=== PATIENT | female | born 2000 | race African-American/Black ===

== ENCOUNTER 2021-04-09 20:51 | Emergency (ER) | payer OTHER ==
[2021-04-09 21:00] VITALS: BP 122/84
[2021-04-09] MEDS ORDERED: SULFAMETH/TRIMETH DS 800/160 MG TABLET PO STA (21:20)
[2021-04-09] MEDS ORDERED: cephALEXin 250 MG CAPSULE PO STA (21:20)
--- NOTE | 2021-04-09 21:21 | ED Physician Documentation ---
History of Present Illness - Stated complaint Stated Complaint: L LEG RASH - Chief complaint Chief Complaint: Wound - History obtained from History obtained from: Patient - History of Present Illness Timing: Yesterday Pain level max: 3 Pain level now: 3 - Additonal information Additional information: 20-year-old female presents to the emergency department after suffering a scratch from a dog on the left thigh about 3 days ago. Yesterday noticed redness and swelling to the site. Nothing makes it better or worse. No fevers. No chills. No drainage. Review of Systems Constitutional: denies: Fever, Chills : denies: Now [facility] PAST MEDICAL HISTORY - Past Medical History Past Medical History: No - Past Surgical History Past Surgical History: No - Present Medications Home Medications: Ambulatory Orders Medication Instructions Recorded Confirmed Sulfamethox/Trimeth 800/160 1 each PO BID #14 tablet 04/09/21 [Bactrim Ds 800/160] cephALEXin [Keflex] 500 mg PO Q6H #28 cap 04/09/21 - Allergies Allergies/Adverse Reactions: Allergies Allergy/AdvReac Type Severity Reaction Status Date / Time No Known Drug Allergies Allergy Verified 04/09/21 21:00 - Social History Does the pt smoke?: No Smoking Status: Never smoker Does the pt drink ETOH?: No Does the pt have substance abuse?: No - Immunizations Immunizations are current?: Yes PD ED PE NORMAL - Vitals Vital signs reviewed: Yes - General General: Alert and oriented X 3, No acute distress - Derm Derm: Warm and dry - Extremities Extremities: Other (2 x 2 centimeter of erythema to the left inner thigh. No drainage. No induration. No fluctuance. Neurovascularly intact) - Neuro Neuro: Alert and oriented X 3 Results - Vitals Vitals: Vital Signs - 24 hr 04/09/21 04/09/21 20:56 21:17 Temperature 36.4 C L 36.4 C L Heart Rate 78 78 Respiratory 12 13 Rate Blood Pressure 122/84 H 122/84 H O2 Saturation 100 100 Oxygen O2 Source Room air PD MEDICAL DECISION MAKING - ED course Complexity details: considered differential, d/w patient ED course: Patient with what appears to be cellulitis of the left thigh. Will place on Bactrim and Keflex. We will have her follow-up with her doctor for further care. Patient counseled regarding signs and symptoms for which I believe and urgent re-evaluation would be necessary. Patient with good understanding of and agreement to plan and is comfortable going home at this time This document was made in part using voice recognition software. While efforts are made to proofread this document, sound alike and grammatical errors may occur. Departure - Departure Disposition: 01 Home, Self Care Clinical Impression: Cellulitis Qualifiers: Site of cellulitis: extremity Site of cellulitis of extremity: lower extremity Laterality: left Qualified Code(s): L03.116 - Cellulitis of left lower limb Condition: Good Instructions: ED Infec Skin Cellulitis Follow-Up: EVA WISE MD [Primary Care Provider] - Within 1 week Prescriptions: Sulfamethox/Trimeth 800/160 [Bactrim Ds 800/160] 1 each PO BID #14 tablet cephALEXin [Keflex] 500 mg PO Q6H #28 cap Comments: Take all antibiotics until gone. Return if you worsen. Please follow-up with your doctor for wound recheck within 1 week. Discharge Date/Time: 04/09/21 21:31
== END 2021-04-09 21:31 | disposition home or self-care (01) ==
LOC: ED 20:51
DX: L03.116 Cellulitis of left lower limb (principal)
CPT/HCPCS: 99282; 99283; A9270

== ENCOUNTER 2021-05-10 15:29 | Emergency (ER) | payer OTHER ==
[2021-05-10] MEDS ORDERED: DICYCLOMINE 10 MG CAPSULE PO STA (17:06)
[2021-05-10] MEDS ORDERED: ONDANSETRON ODT 4 MG TABLET TL STA (17:06)
--- NOTE | 2021-05-10 17:06 | ED Physician Documentation ---
PD HPI ABD PAIN - Stated complaint Stated Complaint: FEMALE - Chief complaint Chief Complaint: Abd Pain - History obtained from History obtained from: Patient - Additional information Additional information: Previously healthy 21-year-old woman has had generalized abdominal cramping for the last week. It comes and goes. Some been better over the last few days but a little worse today. Associated with nausea especially after eating, but no vomiting. No changes in bowel movements. No vaginal discharge or bleeding. She is unsure of her LMP. Review of Systems Ten Systems: 10 systems reviewed and negative Constitutional: reports: Reviewed and negative Eyes: reports: Reviewed and negative Ears: reports: Reviewed and negative Nose: reports: Reviewed and negative PD PAST MEDICAL HISTORY - Past Surgical History Past Surgical History: No - Present Medications Home Medications: Ambulatory Orders Medication Instructions Recorded Confirmed No122/Iron/Folic Acid 1 each PO DAILY #90 tablet 05/10/21 [ Multi Tablet] - Allergies Allergies/Adverse Reactions: Allergies Allergy/AdvReac Type Severity Reaction Status Date / Time No Known Drug Allergies Allergy Verified 05/10/21 15:53 - Social History Does the pt smoke?: No Smoking Status: Never smoker Does the pt drink ETOH?: No Does the pt have substance abuse?: No - Immunizations Immunizations are current?: Yes PD ED PE NORMAL - Vitals Vital signs reviewed: Yes - General General: Alert and oriented X 3, No acute distress - Abdomen Abdomen: Normal bowel sounds, Soft, Non tender - Neuro Neuro: Alert and oriented X 3, Normal speech - Psych Psych: Normal mood, Normal affect Results - Vitals Vitals: Vital Signs - 24 hr 05/10/21 05/10/21 05/10/21 15:51 17:00 19:52 Temperature 36.4 C L 36 C L 37.2 C Heart Rate 81 84 83 Respiratory 16 16 16 Rate Blood Pressure 132/94 H 150/101 H 111/62 O2 Saturation 100 100 100 05/10/21 05/10/21 20:08 20:53 Temperature 37.2 C Heart Rate 77 89 Respiratory 16 16 Rate Blood Pressure 109/68 109/74 O2 Saturation 99 100 Oxygen O2 Source Room air - Labs Labs: Laboratory Tests 05/10/21 05/10/21 05/10/21 16:57 17:38 17:38 WBC 6.7 RBC 4.14 L Hgb 13.0 Hct 38.7 MCV 93.5 MCH 31.4 H MCHC 33.6 RDW 12.1 Plt Count 274 MPV 9.2 Neut # (Auto) 4.2 Lymph # (Auto) 1.8 [place] # (Auto) 0.6 Eos # (Auto) 0.0 Baso # (Auto) 0.0 Absolute Nucleated RBC 0.00 Nucleated RBC % 0.0 Sodium 138 Potassium 4.2 Chloride 104 Carbon Dioxide 23 Anion Gap 11.0 BUN 8 Creatinine 0.8 Estimated GFR (MDRD) 109 Glucose 87 Calcium 10.3 Total Bilirubin 0.9 AST 18 ALT 10 Alkaline Phosphatase 43 Total Protein 8.6 H Albumin 4.9 Globulin 3.7 Albumin/Globulin Ratio 1.3 Lipase 28 HCG, Quant Urine Color YELLOW Urine Clarity CLEAR Urine pH 7.0 Ur Specific [employer] 1.020 Urine Protein TRACE Urine Glucose (UA) NEGATIVE Urine Ketones TRACE Urine Occult Blood SMALL H Urine Nitrite NEGATIVE Urine Bilirubin NEGATIVE Urine Urobilinogen 1 (NORMAL) Ur Leukocyte Esterase NEGATIVE Urine RBC 0-5 Urine WBC 0-3 Ur Squamous Epith Cells FEW Squamous Urine Bacteria Rare Urine Mucus Moderate Strands Ur Microscopic Review INDICATED Urine Culture Comments NOT INDICATED Urine HCG, Qual POSITIVE Blood Type 05/10/21 05/10/21 17:38 17:38 WBC RBC Hgb Hct MCV MCH MCHC RDW Plt Count MPV Neut # (Auto) Lymph # (Auto) [place] # (Auto) Eos # (Auto) Baso # (Auto) Absolute Nucleated RBC Nucleated RBC % Sodium Potassium Chloride Carbon Dioxide Anion Gap BUN Creatinine Estimated GFR (MDRD) Glucose Calcium Total Bilirubin AST ALT Alkaline Phosphatase Total Protein Albumin Globulin Albumin/Globulin Ratio Lipase HCG, Quant 34783.00 Urine Color Urine Clarity Urine pH Ur Specific [employer] Urine Protein Urine Glucose (UA) Urine Ketones Urine Occult Blood Urine Nitrite Urine Bilirubin Urine Urobilinogen Ur Leukocyte Esterase Urine RBC Urine WBC Ur Squamous Epith Cells Urine Bacteria Urine Mucus Ur Microscopic Review Urine Culture Comments Urine HCG, Qual Blood Type O NEGATIVE PD MEDICAL DECISION MAKING - ED course ED course: 21-year-old woman on control presents with abdominal cramping. Fairly benign exam. She did not think she was , that said her urinary test suggested otherwise. She was neither happy nor sad about being , but of course the focus changed to evaluation of the site of . And of course ruling out ectopic. Blood type is O-, but she has not had any bleeding. Departure - Departure Disposition: 01 Home, Self Care Clinical Impression: Blood type O-, Pelvic pain, 6 weeks gestation of Condition: Good Record reviewed to determine appropriate education?: Yes Instructions: ED Preg Established Normal Sxs Follow-Up: [facility] [Provider Group] Prescriptions: No122/Iron/Folic Acid [ Multi Tablet] 1 each PO DAILY #90 tablet Comments: You can take Tylenol as needed for the cramping. I am also prescribing vitamins. Ultrasound shows you to be at about 6 weeks which would put her due date at approximately January 03 of next year. Return for new or worsening symptoms. Your blood type is O-, that means later in the you will need RhoGam. Also if you have bleeding please return for reevaluation as you will need RhoGam probably at that time. Discharge Date/Time: 05/10/21 20:58
[2021-05-10 17:09] LABS: BILIRUBIN,URINE NEGATIVE (NEGATIVE); GLUCOSE, URINE (UA) NEGATIVE (NEGATIVE); KETONES,URINE (UA) TRACE mg/dL (NEGATIVE); LEUKOCYTE ESTERASE, URINE NEGATIVE (NEGATIVE); NITRITE,URINE NEGATIVE (NEGATIVE); OCCULT BLOOD,URINE SMALL (NEGATIVE); PROTEIN,URINE TRACE mg/dL (NEGATIVE); UROBILINOGEN,URINE 1 (NORMAL) E.U./dL (NORMAL)
[2021-05-10 17:10] LABS: CLARITY,URINE CLEAR (CLEAR); HCG UR QUAL POSITIVE
[2021-05-10 17:13] LABS: BACTERIA,URINE Rare /HPF (None Seen); MUCUS,URINE Moderate Strands; RBC,URINE 0-5 /HPF (0-5); SQUAMOUS EPITHELIAL CELL,UR FEW Squamous (<= Few); WBC,URINE 0-3 /HPF (0-5)
[2021-05-10 17:45] LABS: BASOPHILS % (AUTO) 0.4 %; EOSINOPHILS % (AUTO) 0.4 %; HCT - HEMATOCRIT 38.7 % (37.0-47.0); LYMPHOCYTES # (AUTO) 1.8 10^3/uL (1.5-3.5); LYMPHOCYTES % (AUTO) 27.1 %; MEAN CORPUSCULAR HEMOGLOBIN 31.4 pg (27.0-31.0); MEAN CORPUSCULAR HGB CONC 33.6 g/dL (32.0-36.0); MEAN CORPUSCULAR VOLUME 93.5 fL (81.0-99.0); MEAN PLATELET VOLUME 9.2 fL (7.9-10.8); MONOCYTES # (AUTO) 0.6 10^3/uL (0.0-1.0); MONOCYTES % (AUTO) 9.4 %; NEUTROPHILS # (AUTO) 4.2 10^3/uL (1.5-6.6); NEUTROPHILS % (AUTO) 62.7 %; PLT - PLATELET COUNT 274 10^3/uL (130-450); RED BLOOD COUNT 4.14 10^6/uL (4.20-5.40); RED CELL DISTRIBUTION WIDTH 12.1 % (12.0-15.0); WHITE BLOOD COUNT 6.7 x10^3/uL (4.8-10.8)
[2021-05-10 18:01] LABS: ALBUMIN 4.9 g/dL (3.2-5.5); ALBUMIN/GLOBULIN RATIO 1.3 (1.0-2.2); BILIRUBIN,TOTAL 0.9 mg/dL (0.2-1.0); CALCIUM 10.3 mg/dL (8.5-10.3); CREATININE 0.8 mg/dL (0.4-1.0); POTASSIUM 4.2 mmol/L (3.5-5.0); TOTAL PROTEIN 8.6 g/dL (6.7-8.2)
[2021-05-10 20:54] VITALS: BP 109/74
--- NOTE | 2021-05-10 21:36 | Ultrasound Report ---
PROCEDURE: OB First Trimester INDICATIONS: pelvic pain with preg, unknown lmp OUTSIDE/PRIOR DATING DATA: Last menstrual period (LMP): Not available. LMP-based estimated date of delivery (RIOS): Not available. First dating scan (date and location): 05/10/2021 at [facility]. Estimated date of delivery (RIOS) from first dating scan: 01/03/2022. The below data below was generated using the ultrasound RIOS of 01/03/2022. TECHNIQUE: Real-time scanning was performed of the fetus and maternal pelvic organs, with image documentation. COMPARISON: Not available. FINDINGS: There is a single living IUP with the estimated gestational age 6 weeks 0 day. heart tone is present with heart rate 104 BPM. A yolk sac is present. There is a small periestationa l bleed measuring 1.3 x 0.8 x 0.9 cm. Measurement variability in dating: +/- 4 weeks by LMP, +/- 7 days by mean sac diameter (use before 6 weeks gestation if crown-rump length not able to be measured), +/- 5 days by crown-rump length (6-12 weeks gestation). Maternal organs: Ovaries are grossly normal. There is a corpus luteal cyst in the right ovary. There is a small amount of free fluid in pelvis near the uterine fundus. IMPRESSION: 1. There is an intrauterine with the estimated gestational age 6 weeks 0 day. The ultrasoun d RIOS is 01/03/2022. 2. Small perigestational bleed measures 1.3 x 0.8 x 0.9 cm. 3. A corpus luteal cyst in the right ovary. 4. A small amount of free fluid in pelvis, probably within physiological limits. Reviewed by: Edel Manjarrez MD on 05/10/2021 9:34 PM PDT Approved by: Edel Manjarrez MD on 05/10/2021 9:34 PM PDT Station ID: [id number]
--- NOTE | 2021-05-10 21:37 | Ultrasound Report ---
PROCEDURE: OB Transvaginal INDICATIONS: pelvic pain with preg, unknown lmp OUTSIDE/PRIOR DATING DATA: Last menstrual period (LMP): Not available. LMP-based estimated date of delivery (RIOS): Not available. First dating scan (date and location): 05/10/2021 at [facility]. Estimated date of delivery (RIOS) from first dating scan: 01/03/2022. The below data below was generated using the ultrasound RIOS of 01/03/2022. TECHNIQUE: Transvaginal scanning was performed of the fetus and maternal pelvic organs, with image documentation . COMPARISON: OB ultrasound, transabdominal scanning, 05/02/2021. FINDINGS: There is a single living IUP with the estimated gestational age 6 weeks 0 day. heart tone is present with heart rate 104 BPM. A yolk sac is present. There is a small periestationa l bleed measuring 1.3 x 0.8 x 0.9 cm. Measurement variability in dating: +/- 4 weeks by LMP, +/- 7 days by mean sac diameter (use before 6 weeks gestation if crown-rump length not able to be measured), +/- 5 days by crown-rump length (6-12 weeks gestation). Maternal organs: Ovaries are grossly normal. There is a corpus luteal cyst in the right ovary. There is a small amount of free fluid in pelvis near the uterine fundus. IMPRESSION: 1. There is an intrauterine with the estimated gestational age 6 weeks 0 day. The ultrasoun d RIOS is 01/03/2022. 2. Small perigestational bleed measures 1.3 x 0.8 x 0.9 cm. 3. A corpus luteal cyst in the right ovary. 4. A small amount of free fluid in pelvis, probably within physiological limits. Reviewed by: Edel Manjarrez MD on 05/10/2021 9:36 PM PDT Approved by: Edel Manjarrez MD on 05/10/2021 9:36 PM PDT Station ID: [id number]
== END 2021-05-10 20:58 | disposition home or self-care (01) ==
LOC: ED 15:29
DX: O26.891 Other specified pregnancy related conditions, first trimester (principal); R10.2 Pelvic and perineal pain; Z67.40 Type O blood, Rh positive; Z3A.01 Less than 8 weeks gestation of pregnancy
CPT/HCPCS: 36415; 76801; 76817; 80053; 81001; 81025; 83690; 84702; 85025; 86900; 86901; 99283; 99284; A9270; Q0162; 81003; 87086

== ENCOUNTER 2021-09-23 08:00 | Outpatient (CLI) | payer OTHER ==
[2021-09-23 22:22] LABS: BACTERIAL VAGINOSIS DNA POSITIVE (NEGATIVE); CANDIDA GLABRATA DNA NEGATIVE (NEGATIVE); CANDIDA GROUP DNA POSITIVE (NEGATIVE); CANDIDA KRUSEI DNA NEGATIVE (NEGATIVE); TRICHOMONAS VAGINALIS DNA NEGATIVE (NEGATIVE)
== END 2021-09-23 23:59 ==
LOC: LAB 08:00
PROVIDERS: ATTEND Nurse Practitioner
DX: N89.8 Other specified noninflammatory disorders of vagina (principal)
CPT/HCPCS: 87661; 87801

== ENCOUNTER 2021-11-20 08:00 | Outpatient (CLI) | payer OTHER | END 2021-11-20 23:59 | disposition home or self-care (01) | LOC: LAB.N 08:00 | PROVIDERS: ATTEND Family Medicine | DX: B00.1 Herpesviral vesicular dermatitis (principal) | CPT/HCPCS: 81599; 87140; 87255 ==

== ENCOUNTER 2023-07-04 13:04 | Emergency (ER) | payer OTHER ==
[2023-07-04 13:35] LABS: BASOPHILS % (AUTO) 0.5 %; EOSINOPHILS % (AUTO) 0.6 %; HCT - HEMATOCRIT 42.6 % (37.0-47.0); HGB - HEMOGLOBIN 13.7 g/dL (12.0-16.0); LYMPHOCYTES # (AUTO) 2.6 10^3/uL (1.5-3.5); LYMPHOCYTES % (AUTO) 40.7 %; MEAN CORPUSCULAR HEMOGLOBIN 29.5 pg (27.0-31.0); MEAN CORPUSCULAR HGB CONC 32.2 g/dL (32.0-36.0); MEAN CORPUSCULAR VOLUME 91.8 fL (81.0-99.0); MEAN PLATELET VOLUME 9.5 fL (7.9-10.8); MONOCYTES # (AUTO) 0.4 10^3/uL (0.0-1.0); MONOCYTES % (AUTO) 6.2 %; NEUTROPHILS # (AUTO) 3.3 10^3/uL (1.5-6.6); NEUTROPHILS % (AUTO) 51.8 %; PLT - PLATELET COUNT 317 10^3/uL (130-450); RED BLOOD COUNT 4.64 10^6/uL (4.20-5.40); RED CELL DISTRIBUTION WIDTH 12.2 % (12.0-15.0); WHITE BLOOD COUNT 6.3 x10^3/uL (4.8-10.8)
[2023-07-04 13:44] LABS: BILIRUBIN,URINE NEGATIVE (NEGATIVE); GLUCOSE, URINE (UA) NEGATIVE (NEGATIVE); KETONES,URINE (UA) NEGATIVE (NEGATIVE); LEUKOCYTE ESTERASE, URINE NEGATIVE (NEGATIVE); NITRITE,URINE NEGATIVE (NEGATIVE); OCCULT BLOOD,URINE NEGATIVE (NEGATIVE); PH,URINE 5.5 PH (5.0-7.5); PROTEIN,URINE NEGATIVE (NEGATIVE); UROBILINOGEN,URINE 0.2 (NORMAL) E.U./dL (NORMAL)
[2023-07-04 13:45] LABS: CLARITY,URINE CLEAR (CLEAR); HCG UR QUAL NEGATIVE
[2023-07-04 13:50] LABS: ALBUMIN 5.2 g/dL (3.2-5.5); ALBUMIN/GLOBULIN RATIO 1.5 (1.0-2.2); BILIRUBIN,TOTAL 0.4 mg/dL (0.2-1.0); CALCIUM 10.1 mg/dL (8.5-10.3); CREATININE 0.9 mg/dL (0.6-1.3); POTASSIUM 3.9 mmol/L (3.5-4.5); TOTAL PROTEIN 8.6 g/dL (6.4-8.9)
--- NOTE | 2023-07-04 14:40 | ED Physician Documentation ---
PD HPI ABD PAIN - Stated complaint Stated Complaint: ABD CRAMPS - Chief complaint Chief Complaint: Abd Pain - History obtained from History obtained from: Patient - Additional information Additional information: The patient comes to the emergency department chief complaint of lower abdominal cramping has been going on for the last couple of days. She states that it seems to be worse when she gets up and about that when she is sits or lies down rest, she does not feel it at all. She denies any change in bowel movements or any vaginal symptoms. No urinary symptoms. No fevers or chills. No nausea or vomiting. She is otherwise fairly healthy. She is not known to be . PD PAST MEDICAL HISTORY - Past Medical History Past Medical History: No Cardiovascular: None Respiratory: None Neuro: None Endocrine/Autoimmune: None GI: None VP PROJECT: None : None HEENT: None Psych: None Musculoskeletal: None Derm: None - Past Surgical History Past Surgical History: No - Present Medications Home Medications: Ambulatory Orders Medication Instructions Recorded Confirmed No Known Home Medications 07/04/23 07/04/23 - Allergies Allergies/Adverse Reactions: Allergies Allergy/AdvReac Type Severity Reaction Status Date / Time No Known Drug Allergies Allergy Verified 07/04/23 13:20 - Social History Does the pt smoke?: No Smoking Status: Never smoker Does the pt drink ETOH?: No Does the pt have substance abuse?: No - Immunizations Immunizations are current?: Yes Immunizations: Other immun not current PD ED PE NORMAL - Vitals Vital signs reviewed: Yes - General General: Alert and oriented X 3, No acute distress, Well developed/nourished - HEENT HEENT: Atraumatic, PERRL, EOMI, Moist mucous membranes - Neck Neck: Supple, no meningeal sign - Cardiac Cardiac: RRR, No murmur - Respiratory Respiratory: No respiratory distress, Clear bilaterally - Abdomen Abdomen: Soft, Non tender, Non distended - Derm Derm: Normal color, Warm and dry, No rash - Extremities Extremities: No deformity, No edema - Neuro Neuro: Alert and oriented X 3, Other (Grossly intact) - Psych Psych: Normal mood, Normal affect Results - Vitals Vitals: Oxygen O2 Source Room air - Labs Labs: Laboratory Tests 07/04/23 07/04/23 07/04/23 13:30 13:30 13:31 WBC 6.3 RBC 4.64 Hgb 13.7 Hct 42.6 MCV 91.8 MCH 29.5 MCHC 32.2 RDW 12.2 Plt Count 317 MPV 9.5 Neut # (Auto) 3.3 Lymph # (Auto) 2.6 [place] # (Auto) 0.4 Eos # (Auto) 0.0 Baso # (Auto) 0.0 Absolute Nucleated RBC 0.00 Nucleated RBC % 0.0 Sodium Potassium Chloride Carbon Dioxide Anion Gap BUN Creatinine Estimated GFR (MDRD) Glucose Calcium Total Bilirubin AST ALT Alkaline Phosphatase Total Protein Albumin Globulin Albumin/Globulin Ratio Lipase Urine Color YELLOW Urine Clarity CLEAR Urine pH 5.5 Ur Specific [place] >=1.030 H Urine Protein NEGATIVE Urine Glucose (UA) NEGATIVE Urine Ketones NEGATIVE Urine Occult Blood NEGATIVE Urine Nitrite NEGATIVE Urine Bilirubin NEGATIVE Urine Urobilinogen 0.2 (NORMAL) Ur Leukocyte Esterase NEGATIVE Ur Microscopic Review NOT INDICATED Urine Culture Comments NOT INDICATED Urine HCG, Qual NEGATIVE 07/04/23 13:31 WBC RBC Hgb Hct MCV MCH MCHC RDW Plt Count MPV Neut # (Auto) Lymph # (Auto) [place] # (Auto) Eos # (Auto) Baso # (Auto) Absolute Nucleated RBC Nucleated RBC % Sodium 136 Potassium 3.9 Chloride 102 Carbon Dioxide 26 Anion Gap 8.0 BUN 10 Creatinine 0.9 Estimated GFR (MDRD) 93 Glucose 90 Calcium 10.1 Total Bilirubin 0.4 AST 18 ALT 12 Alkaline Phosphatase 73 Total Protein 8.6 Albumin 5.2 Globulin 3.4 Albumin/Globulin Ratio 1.5 Lipase 25 Urine Color Urine Clarity Urine pH Ur Specific [place] Urine Protein Urine Glucose (UA) Urine Ketones Urine Occult Blood Urine Nitrite Urine Bilirubin Urine Urobilinogen Ur Leukocyte Esterase Ur Microscopic Review Urine Culture Comments Urine HCG, Qual PD Medical Decision Making - ED course Complexity details: reviewed results, re-evaluated patient, considered differential, d/w patient ED course: The patient was worked up with labs, urinalysis, and test, all of which were found to be unremarkable. Her abdominal exam is completely benign and I discussed with the patient that at this point in time, I do not feel there is an emergent indication for imaging. I am not sure exactly why the patient has intermittent cramping, but up there is no evidence of an emergent condition right now. We have discussed symptomatic management at home, as well as usual indications for return. We have also discussed the need for follow-up. Departure - Departure Disposition: 01 Home, Self Care Clinical Impression: Abdominal cramps Condition: Stable Instructions: ED Abdominal Pain Female Non-Specific Abdominal Pain Comments: Your labs are completely normal today. Your urinalysis shows no abnormalities other than being a bit concentrated, which could indicate some dehydration. Please be sure you are getting 8 to 10 cups of water each day to prevent dehydration. Your abdominal exam is benign and its not entirely clear what is causing the cramps when you get up and move around. Your test is negative and there is no evidence on exam or the testing to suggest appendicitis, urinary tract infection, kidney stone, or ovarian pathology. Additionally, your negative test rules out some of the other more emergent causes of low abdominal pain that we would consider. Most likely, the symptoms will blow over on their own, given time. Some of it could be related to stress, dehydration, diet, or the recent cessation of your control. Please be sure to follow-up with your doctor and ideally, a sawdust machine operator as well, to discuss other control options. If your symptoms get a lot worse, or you develop unremitting pain in a specific part of your abdomen, especially with fever and/or vomiting, please return to the emergency department for a recheck. Forms: PCP List Discharge Date/Time: 07/04/23 14:51
[2023-07-04 14:53] VITALS: BP 134/95; O2SAT 98
== END 2023-07-04 14:51 | disposition home or self-care (01) ==
LOC: ED 13:04
DX: R10.30 Lower abdominal pain, unspecified (principal)
CPT/HCPCS: 36415; 80053; 81001; 81003; 81025; 83690; 85025; 87086; 99283

== ENCOUNTER 2023-08-14 08:00 | Outpatient (CLI) | payer OTHER ==
[2023-08-14 22:18] LABS: BACTERIAL VAGINOSIS DNA POSITIVE (NEGATIVE); CANDIDA GLABRATA DNA NEGATIVE (NEGATIVE); CANDIDA GROUP DNA NEGATIVE (NEGATIVE); CANDIDA KRUSEI DNA NEGATIVE (NEGATIVE); TRICHOMONAS VAGINALIS DNA NEGATIVE (NEGATIVE)
== END 2023-08-14 23:59 | disposition home or self-care (01) ==
LOC: LAB.N 08:00
PROVIDERS: ATTEND Nurse Practitioner
DX: N91.2 Amenorrhea, unspecified (principal); N89.8 Other specified noninflammatory disorders of vagina
CPT/HCPCS: 36415; 81514; 84702; 84703

== ENCOUNTER 2023-12-29 11:56 | Emergency (ER) | payer OTHER ==
[2023-12-29 12:06] VITALS: BP 123/86; O2SAT 100
[2023-12-29 12:22] LABS: BILIRUBIN,URINE NEGATIVE (NEGATIVE); OCCULT BLOOD,URINE NEGATIVE (NEGATIVE)
[2023-12-29 12:26] LABS: CLARITY,URINE CLEAR (CLEAR)
[2023-12-29 12:28] LABS: HCG UR QUAL NEGATIVE
--- NOTE | 2023-12-29 12:38 | ED Physician Documentation ---
PD HPI FEMALE - Stated complaint Stated Complaint: - Chief complaint Chief Complaint: UTI - History obtained from History obtained from: Patient - Additional information Additional information: 23-year-old female presents with dysuria urgency and frequency for the past 3 days. She feels like she may have a urinary tract infection. She states she is also concerned about possible bacterial vaginosis. She has had BV in the past. She does note some malodorous drainage. She denies any concern for gonorrhea or chlamydia however, no change in sexual partners. She has not had a fever or chills, no flank pain, no pelvic pain or nausea/vomiting. She has been taking [id number] Azo that has been somewhat helpful. Review of Systems Constitutional: reports: Reviewed and negative Nose: reports: Sinus pressure / pain Cardiac: reports: Reviewed and negative Respiratory: reports: Reviewed and negative GI: reports: Reviewed and negative : reports: Dysuria, Frequency, Hesitancy, Discharge. denies: Hematuria Skin: reports: Reviewed and negative Musculoskeletal: reports: Reviewed and negative Neurologic: reports: Reviewed and negative Psychiatric: reports: Reviewed and negative PD PAST MEDICAL HISTORY - Past Medical History Past Medical History: No Cardiovascular: None Respiratory: None Neuro: None Endocrine/Autoimmune: None GI: None ACUTE SPECIALIST: None : None HEENT: None Psych: None Musculoskeletal: None Derm: None - Past Surgical History Past Surgical History: No - Present Medications Home Medications: Ambulatory Orders Medication Instructions Recorded Confirmed cephALEXin [Keflex] 500 mg PO BID 5 Days #10 cap 12/29/23 metroNIDAZOLE [Flagyl] 500 mg PO BID 7 Days #14 tablet 12/29/23 - Allergies Allergies/Adverse Reactions: Allergies Allergy/AdvReac Type Severity Reaction Status Date / Time No Known Drug Allergies Allergy Verified 12/29/23 11:58 - Social History Does the pt smoke?: No Smoking Status: Never smoker Does the pt drink ETOH?: No Does the pt have substance abuse?: No - Immunizations Immunizations are current?: Yes Immunizations: Other immun not current - POLST Patient has POLST: No PD ED PE NORMAL - Vitals Vital signs reviewed: Yes - General General: Alert and oriented X 3, No acute distress, Well developed/nourished - Abdomen Abdomen: Normal bowel sounds, Soft, Non tender, Non distended, Other (No CVAT) - Female Female : Pt declined - Back Back: No CVA TTP, No spinal TTP - Derm Derm: Normal color, Warm and dry, No rash Results - Vitals Vitals: Vital Signs - 24 hr 12/29/23 11:59 Temperature 36.5 C Heart Rate 88 Respiratory 16 Rate Blood Pressure 123/86 H O2 Saturation 100 Oxygen O2 Source Room air - Labs Labs: Laboratory Tests 12/29/23 12:06 Urine Color DK. ORANGE Urine Clarity CLEAR Urine pH 5.0 Ur Specific [place] 1.025 Urine Protein Urine Glucose (UA) Urine Ketones Urine Occult Blood NEGATIVE Urine Nitrite Urine Bilirubin NEGATIVE Urine Urobilinogen Ur Leukocyte Esterase Urine RBC 0-5 Urine WBC 11-25 H Ur Squamous Epith Cells FEW Squamous Urine Bacteria Few Ur Microscopic Review INDICATED Urine Culture Comments INDICATED Urine HCG, Qual NEGATIVE PD Medical Decision Making - ED course Complexity details: reviewed results, considered differential, d/w patient ED course: 23-year-old female presents With dysuria urgency and frequency with Ressie days and concern for possible urinary tract infection. Her urinalysis is somewhat equivocal, she does have white blood cells but no nitrites or leuk esterase and only few bacteria. Given her symptoms however I recommend treating, I have given her Keflex for the next 5 days. Patient also noting a history of bacterial vaginosis and she is concerned about possible recurrence. She denies any other concerns for STI however recommended that we test for gonorrhea chlamydia trichomoniasis and Bacterial vaginosis. I did offer a pelvic exam however patient declined at this time. In the meantime I will give her treatment for BV with oral metronidazole 500 mg twice daily for 7 days. She was cautioned on the side effects of this medication and to avoid concurrent alcohol use. The patient was advised to return if she develops a fever, flank pain, pelvic pain or new concerns. She was advised that we will notify her via phone if any of these test results come out positive. She was encouraged to see her PCP if no improvement with course of treatment. Departure - Departure Disposition: 01 Home, Self Care Clinical Impression: Urinary tract infection Qualifiers: Urinary tract infection type: acute cystitis Hematuria presence: without hematuria Qualified Code(s): N30.00 - Acute cystitis without hematuria Condition: Good Instructions: ED UTI Cystitis Female Prescriptions: metroNIDAZOLE [Flagyl] 500 mg PO BID 7 Days #14 tablet cephALEXin [Keflex] 500 mg PO BID 5 Days #10 cap Comments: Please take antibiotics as prescribed and stay well-hydrated. If your symptoms do not improve after the course of treatment or worsening anytime including flank pain, fever, vomiting or new concerns, return to the ER. We did send testing for gonorrhea, chlamydia, trichomoniasis, and bacterial vaginosis and will notify you by phone if positive. Your medications were sent to [facility].
[2023-12-29 12:44] LABS: BACTERIA,URINE Few /HPF (None Seen); RBC,URINE 0-5 /HPF (0-5); SQUAMOUS EPITHELIAL CELL,UR FEW Squamous (<= Few)
[2023-12-29 16:37] LABS: BACTERIAL VAGINOSIS DNA NEGATIVE (NEGATIVE); CANDIDA GLABRATA DNA NEGATIVE (NEGATIVE); CANDIDA GROUP DNA NEGATIVE (NEGATIVE); CANDIDA KRUSEI DNA NEGATIVE (NEGATIVE); TRICHOMONAS VAGINALIS DNA NEGATIVE (NEGATIVE)
[2023-12-29 18:52] LABS: CHLAMYDIA TRACHOMATIS DNA NEGATIVE (NEGATIVE); NEISSERIA GONORRHOEAE DNA NEGATIVE (NEGATIVE)
== END 2023-12-29 13:08 | disposition home or self-care (01) ==
LOC: ED 11:56
DX: N30.00 Acute cystitis without hematuria (principal)
CPT/HCPCS: 81001; 81003; 81025; 81514; 87086; 87491; 87591; 87661; 99283